=== PATIENT | female | born 1970 | race Caucasian/White ===

== ENCOUNTER 2018-03-06 15:21 | Emergency (ER) | payer MEDICAID, OTHER, SELFPAY ==
[~2018-03-06] VITALS: Ht 165.1 cm; Wt 120.0 kg
[2018-03-06 16:15] LABS: MEAN CORPUSCULAR HEMOGLOBIN 25.1 pg (27.0-34.8); MEAN CORPUSCULAR HGB CONC 32.8 g/dL (32.4-35.8); MEAN CORPUSCULAR VOLUME 76.6 fL (80-100); MEAN PLATELET VOLUME 10.7 fL (7.4-10.4); PLATELET COUNT 205 x10^3/uL (130-400); RED BLOOD COUNT 4.93 x10^6/uL (3.82-5.3); RED CELL DISTRIBUTION WIDTH 17.6 % (9.6-15.2)
[2018-03-06 16:22] LABS: ALBUMIN 3.7 g/dL (3.4-5.0); ANION GAP 7 mmol/L (5-15); CALCIUM 8.3 mg/dL (8.5-10.1); CHLORIDE 109 mmol/L (98-107); CREATININE 0.82 mg/dL (0.55-1.02); TROPONIN I 0.016 ng/mL (0.000-0.045)
--- NOTE | 2018-03-06 16:23 | NUR ---
PT TO ED ROOM 23 FROM LOBBY IN NAD AT THIS TIME
[2018-03-06 16:40] LABS: BASOPHILS # (AUTO) 0.05 x10^3/uL (0-0.1); BASOPHILS % (AUTO) 1 % (0-1); EOSINOPHILS # (AUTO) 0.21 x10^3/uL (0-0.4); EOSINOPHILS % (AUTO) 3 % (1-7); LYMPHOCYTES % (AUTO) 26 % (22-44); MD SCAN; MONOCYTES # (AUTO) 0.64 x10^3/uL (0.2-0.8); MONOCYTES % (AUTO) 8 % (2-9); NEUTROPHILS # (AUTO) 4.98 x10^3/uL (1.8-6.8); NEUTROPHILS % (AUTO) 63 % (42-75)
[2018-03-06] MEDS ORDERED: ACETAMINOPHEN 325 MG TABLET ONE (16:51)
[2018-03-06] MEDS ORDERED: ACETAMINOPHEN 325 MG TABLET PO ONE (17:00)
[2018-03-06] MEDS ORDERED: FUROSEMIDE 20 MG TABLET PO ONE (17:30)
[2018-03-06] MEDS ORDERED: FUROSEMIDE 20 MG TABLET ONE (17:39)
[2018-03-06 18:14] VITALS: BP 143/87
[2018-03-06] MEDS ORDERED: IBUPROFEN 600 MG TABLET ONE (18:23)
[2018-03-06] MEDS ORDERED: IBUPROFEN 600 MG TABLET PO ONE (18:30)
== END 2018-03-06 18:28 | disposition home or self-care (01) ==
LOC: ED 18:22
DX: I10 Essential (primary) hypertension (principal); Z76.0 Encounter for issue of repeat prescription; E11.9 Type 2 diabetes mellitus without complications
CPT/HCPCS: 36415; 71045; 80048; 82040; 83880; 84484; 85025; 93005; 99284